=== PATIENT | female | born 1950 | race Caucasian/White ===

== ENCOUNTER 2016-08-19 04:23 | Inpatient (IN) | payer OTHER ==
[~2016-08-19] VITALS: Ht 162.6 cm; Wt 70.8 kg
[~2016-08-19 04:23] MED LIST: ALIGN4 M1; CLARITIN10 M1 PO; CLONAZEPAM0.5 M2 PO; COZAAR50 M1 PO; CRESTOR20 M2 PO; LAMICTAL XR100 M1 PO; OMEPRAZOLE40 M1 PO; TYLENOL EXTRA500 M2 PO
--- NOTE | 2016-08-19 14:09 | Admission Core Measures ---
Admission Meds I reviewed the following Meds: Current Medications Sig/Elijah Start time Last Medication Dose Stop Time Status Admin Acetaminophen 975 MG ONCE 08/19 0000 NR (Tylenol) 08/19 2358 Cefazolin Sodium 2,000 MG ONCE 08/19 0000 NR (Kefzol-Ancef Inj) 08/19 2358 Clonazepam 0.5 MG TIDPRN 08/19 1315 AC (KlonoPIN) 08/26 1314 Lactobacillus 1 CAP DAILY 08/20 1000 AC Acidophilus (Probiotic) Lamotrigine 300 MG BID 08/19 2200 AC (LaMICtal) Loratadine 10 MG DAILY 08/20 1000 AC (Claritin) Losartan Potassium 75 MG DAILY 08/20 1000 AC (Cozaar) Omeprazole 40 MG DAILY AC 08/20 0700 AC (Prilosec) Oxycodone HCl 10 MG ONCE 08/19 0000 NR (Roxicodone) 08/19 2358 Acute Coronary Syndrome Inclusion Criteria ACS Diagnosis No Inpatient Core Measures LDL Reminder: If No, please order W/I first 24hr of stay Congestive Heart Failure Inclusion Criteria CHF Diagnosis No Cerebrovascular accident Inclusion Criteria CVA/TIA Diagnosis No Inpatient Core Measures Bedside Swallow Eval Reminder: If BSE failed, place ST order Antithrombotic Reminder: Order Antithrombotic Medication by end of day 2 Antithrombotic Reminder: Document Reason Antithrombotic Not ordered by end of day 2 AFIB/Flutter Reminder: If Present, add to problem list AFIB/Flutter Reminder: Order Anticoag Medication for pts with AFIB/Flutter Atherosclerosis Reminder: If Present, add to problem list LDL Reminder: If No, please order W/I first 24hr of stay PT Order Reminder: If No, please order Venous thromboembolism Inpatient Core Measures VTE Risk Factors: Age > 40, Surgery No [facility] VTE prophylaxis d/t No contraindications No VTE Pharm Prophylaxis d/t No contraindications Inclusion Criteria - Per Current guidelines, there needs to be overlap - treatment for the first 5 days of Warfarin therapy. - Parenteral Anticoagulation (IV or SC) needs to be - given along with Warfarin therapy. VTE Diagnosis No VTE Type NONE VTE Confirmed by (Test) NONE Problem List As ranked by this Provider includes Assessment & Plan 1. Unilateral primary osteoarthritis, right hip HOME MEDS Home Med List Acetaminophen (Tylenol Extra Strength) 500 MG TABLET 2 TAB PO TID PAIN ( Reported) Clonazepam 0.5 MG TABLET 1 TAB PO TIDPRN SEIZURE DISORDER (Reported) Lamotrigine (Lamictal XR) 100 MG TAB.ER.24 6 TAB PO DAILY SEIZURE DISORDER ( Reported) Loratadine (Claritin) 10 MG TABLET 1 TAB PO DAILY ALLERGIES (Reported) Losartan Potassium (Cozaar) 50 MG TABLET 1.5 TAB PO DAILY HTN (Reported) Omeprazole 40 MG CAPSULE.DR 1 CAP PO DAILY HX GI BLEED (Reported) Rosuvastatin Calcium (Crestor) 20 MG TABLET 1 TAB PO 3X WEEK CHOLESTEROL ( Reported)
[2016-08-19] MEDS ORDERED: MIRALAX17 G1 PO (14:27)
[2016-08-19] MEDS ORDERED: DILAUDID2 M1 PO (14:27)
[2016-08-19] MEDS ORDERED: COLACE100 M1 PO (14:27)
[2016-08-19] MEDS ORDERED: ELIQUIS2.5 M1 PO (14:27)
--- NOTE | 2016-08-19 15:04 | Patient Discharge Instructions ---
Discharge Instructions General Discharge Information You were seen/treated for: Right hip pain related to unilateral primary osteoarthritis You had these procedures: right total hip replacement Watch for these problems: Increasing pain despite the use of pain medication. Increasing redness, warmth or swelling. Drainage of any type from incision. Inability to bear weight on operative leg. Persistent nausea and vomiting. Fever greater than 101.5 degrees. Do not soak the wound: Yes No bath, but you may shower: Yes Other wound care: Please keep wound clean and dry. No ointments or lotions of any type on or near incision at any time. No exceptions. Your dressing will be changed by your nurse on the second day after your surgery. Daily dry dressing changes are recommended each day thereafter. Do not soak your wound in a bath at any time until otherwise indicated by Dr. Schuler. You may shower, please dry wound immediately after shower with a clean towel. Special Instructions: Constipation: Pain medication can be very constipating. Dr. Schuler has recommended that you take Colace and miralax each day. You may discontinue this medication if you develop loose stool or diarrhea. If you wish to continue this medication, it is available over the counter. If you are unable to move your bowels after several days, if you are unable to pass gas and are developing bloating, nausea, or vomiting as a result, please contact your doctor. Diet Continue normal diet: Yes Recommended Diet: Regular Activity Full Activity/No Limits: No Activity Self Limited: Yes Pounds, do NOT lift more than: 10 Activity Limited to: Weight bear as tolerated Acute Coronary Syndrome Inclusion Criteria At [place] or during hospital stay patient has or had the following: ACS DIAGNOSIS No Discharge Core Measures Meds if any: Prescribed or Continued at Discharge Meds if any: NOT Prescribed or Continued at Discharge Congestive Heart Failure Inclusion Criteria At [place] or during hospital stay patient has or had the following: CHF DIAGNOSIS No Discharge Core Measures Meds if any: Prescribed or Continued at Discharge Meds if any: NOT Prescribed or Continued at Discharge Cerebrovascular accident Inclusion Criteria At [place] or during hospital stay patient has or had the following: CVA/TIA Diagnosis No Discharge Core Measures Meds if any: Prescribed or Continued at Discharge Meds if any: NOT Prescribed or Continued at Discharge Venous thromboembolism Inclusion Criteria VTE Diagnosis No VTE Type NONE VTE Confirmed by (Test) NONE Discharge Core Measures - Per Current guidelines, there needs to be overlap - treatment for the first 5 days of Warfarin therapy. - If discharged on Warfarin prior to 5 days of - overlap therapy, the patient will need to be - assessed for post discharge needs including - *Post discharge parental anticoagulation - *Warfarin and/or parental anticoagulation education - *Follow up date to check INR post discharge At least 5 days overlap therapy as Inpatient No Meds if any: Prescribed or Continued at Discharge Note: Overlap Therapy is Warfarin and Anticoagulant Meds if any: NOT Prescribed or Continued at Discharge
--- NOTE | 2016-08-19 15:08 | Surgical Discharge Summary ---
Visit Information Visit Dates Admission Date: 08/19/16 Discharge Date: 08/26/16 History of Present Illness Chief Complaint: Right hip pain related to unilateral primary osteoarthritis Medical History Isolation History: Standard Surgical History Pertinent Surgical History: non-contributory Review of Systems: See H&P Hospital Course Course Attending Physician: DIANE NIÑO MD Primary Care Physician: SANTIAGO MERCADO,[facility] Course: Patient was admitted to the hospital for an elective total joint replacement. The procedure was tolerated well and the patient was transferred to a general surgical floor. Diet was advanced and tolerated and the patient voided spontaneously. The patient was evaluated and treated by physical therapy. Although she was cleared for discharge to home by PT, the patient had anticipated going to a short term rehab facility and appealed the insurance denial, which prolonged her hospitalization. Complications: None Allergies: Coded Allergies: Fish Containing Products (Severe, HIVES 08/13/16) Iodinated Contrast- Oral and IV Dye (Severe, HIVES 08/18/16) cefaclor (From CECLOR) (Intermediate, RASH 08/13/16) NSAIDS (Non-Steroidal Anti-Inflamma (HX GI BLEED 08/13/16) Disposition Summary Disposition Principal Diagnosis: Right hip unilateral primary osteoarthritis Additional Diagnosis: same as above, s/p right total hip replacement (08/19/16) Discharge Disposition: home health services Discharge Instructions General Discharge Information Code Status: Full Code Patient's Diet: Regular, advance as tolerated Patient's Activity: WBAT Follow-Up Instructions/Appts: Follow up with Dr. Niño in 6 weeks from date of surgery. Please call his office to arrange and/or confirm this appointment. Medications at Discharge Discharge Medications: Stop taking the following medications: Acetaminophen (Tylenol Extra Strength) 500 MG TABLET ORAL THREE TIMES DAILY Continue taking these medications: Lamotrigine (Lamictal XR) 100 MG TAB.ER.24 6 Tablet ORAL DAILY Clonazepam (Clonazepam) 0.5 MG TABLET 1 Tablet ORAL THREE TIMES A DAY NEEDED Omeprazole (Omeprazole) 40 MG CAPSULE.DR 1 Capsule ORAL DAILY Bifidobacterium Infantis (Align) 4 MG (1 BILLION CELL) CAPSULE DAILY Losartan Potassium (Cozaar) 50 MG TABLET 1.5 Tablet ORAL DAILY Rosuvastatin Calcium (Crestor) 20 MG TABLET 1 Tablet ORAL 3X WEEK Loratadine (Claritin) 10 MG TABLET 1 Tablet ORAL DAILY Start taking the following new medications: Apixaban (Eliquis) 2.5 MG TABLET 1 Tablet ORAL TWICE DAILY Qty = 42 No Refills Docusate Sodium (Colace) 100 MG CAPSULE 1 Capsule ORAL TWICE DAILY Qty = 14 No Refills Instructions: DISCONTINUE USE IF YOU DEVELOP LOOSE STOOL OR DIARRHEA Polyethylene Glycol 3350 (Miralax) 17 GRAM POWD.PACK 1 Packet ORAL DAILY Qty = 7 No Refills Instructions: dissolve in water, DISCONTINUE USE IF YOU DEVELOP LOOSE STOOL OR DIARRHEA Hydromorphone HCl (Dilaudid) 2 MG TABLET 1-2 Tablet ORAL EVERY 4-6 HOURS as needed for PAIN Qty = 36 No Refills Copies To: CHRISTIAN HENDERSON MD
--- NOTE | 2016-08-19 15:16 | Operative Report ---
Operative/Inv Procedure Report Surgery Date: 08/19/16 Name of Procedure: Right Total hip replacement Pre-Operative Diagnosis: Primary right hip DJD Post-Operative Diagnosis: Same Estimated Blood Loss: 250 Surgeon/Medical Case Worker: RENAY MERCADO,DIANE Hernandez Anesthesia: block Operative/Procedure Note Note: Description of Procedure: The patient was taken to the operating room and positively identified. After induction of spinal anesthesia and administration of appropriate pre-operative antibiotics, the patient was positioned supine on the operating room table and all bony prominences were well padded. After performing a surgical timeout, the right lower extremity was prepped and draped in the usual sterile fashion. A direct anterior approach was made to the right hip. The incision was carried sharply through superficial soft tissues to the level of the fascia. Meticulous hemostasis was maintained with Bovie electocautery. The fascia over the tensor fascia shanda muscle was opened sharply and the interval between the TFL and the sartorius was entered bluntly taking care to stay lateral to the lateral femoral cutaneous nerve. Retractors were placed around the femoral neck and the pericapsular fat was identified. The ascending branches of the lateral femoral circumflex vessels were identified and carefully coagulated. The pericapsular fat and anterior capsule were then resected. A napkin ring osteotomy was performed and the femoral head was removed without difficulty. Attention was then turned to the acetabulum. After appropriate placement of retractors, the acetabulum was exposed. Soft tissue was cleaned from the acetabular margin and notch. Overhanging osteophytes were removed and the teardrop was exposed. The acetabulum was then sequentially reamed to accept a 56 mm Cony Tritanium hemispherical solid back shell. This was impacted into place in the appropriate position and fitted with a 36 mm Trident X3 zero degree polyethylene insert. Attention was then turned to the femur. After performing the appropriate ligament releases, the proximal femur was exposed. It was then sequentially broached to accept a size 7 [place] secure fit advanced 127 stem. This was trialed for leg length and stability. The trial component was removed and the final component was impacted into place. The trunnion was carefully cleaned and fit with a 36 mm, +2.5 Biolox delta ceramic femoral head. The hip was reduced and put through a full range of motion and found to be stable. The articular space was then irrigated with sterile saline. The periarticular soft tissues were infilitrated with Marcaine. The fascial layer was closed with interrupted #1 vicryl suture and the skin was re-approximated with interrupted 2 -0 vicryl. The skin was closed with a running 3-0 V-Lock suture. Steri-strips and a sterile dressing were applied. The patient was awakened and taken to the recovery room in satisfactory condition.
--- NOTE | 2016-08-19 15:27 | RADIOLOGY REPORT ---
EXAMINATION: XR HIP, RIGHT CLINICAL INFORMATION: Right hip arthroplasty. COMPARISON: None TECHNIQUE: Two views of the right hip. FINDINGS: Right total hip arthroplasty present, demonstrating usual position and alignment. No evidence of acute periprosthetic fractures. Postsurgical changes including soft tissue air is noted. Normal articulation of the arthroplasty components. IMPRESSION: Postsurgical changes, status post right total hip arthroplasty.
--- NOTE | 2016-08-19 16:03 | PN- Orthopedic ---
Subjective Subjective: POC denies pain, anesthesia still on board- numbness and inability to fully move legs. No n/v, tolerating sips water, no cp/sob. no oob yet Objective Vital Signs and I&Os AVSS Physical Exam: GEN: NAD CARD: s1s2 rrr PULM: CTAB ABD: soft nt nd EXT: R hip dressing cdi, ice in place, skin with some erythema under ice pack- chuckpad placed between skin and ice. Limited motor and sensate LE, geri to remaining anesthesia. + palp pt/dp Assessment/Plan Assessment/Plan A: POD0 sp R BO, stable with residual anesthesia affecting return of neurological fxn. P: prn pain meds prn nausea meds bowel regimen am labs eliquis 2.5 bid for dvt ppx oob, pt, wbat dc planning will reassess pt later to ensure return le neurological fxn. Core Measures/Miscellaneous Venous Thromboembolism VTE Risk Factors: Surgery VTE Contraindications: No Contraindications VTE Diagnosis: No VTE Type: NONE VTE Confirmed by (Test): NONE Beta Giovany Is Beta Giovany a Home Med? Yes If Yes, Was This Ordered Today? Yes Antibiotics Is Patient on Antibiotics? Yes If Yes: prophylaxis
[2016-08-19 19:16] VITALS: BP 154/80
[2016-08-19 20:46] VITALS: BP 150/68
[2016-08-19 22:30] VITALS: BP 148/80
[2016-08-20 02:00] VITALS: BP 142/76
[2016-08-20 06:00] VITALS: BP 122/70
--- NOTE | 2016-08-20 07:37 | PN- Orthopedic ---
Subjective Subjective: Patient without complaints, she has minimal pain, she has yet to be out of bed, she has voided. Objective Vital Signs and I&Os Vital Signs Date Time Temp Pulse Resp B/P B/P Pulse O2 O2 Flow FiO2 Mean Ox Delivery Rate 08/20 0600 98.2 84 20 122/70 94 Room Air 08/20 0200 98.1 63 18 142/76 95 Room Air 08/19 2302 81 150/68 08/19 2230 97.5 74 20 148/80 95 Room Air 08/19 2046 97.7 81 20 150/68 95 Room Air 08/19 1916 97.7 79 20 154/80 95 Room Air Intake & Output 08/20 0800 08/20 0000 08/19 1600 08/19 0800 08/19 0000 08/18 1600 Intake Total 700 500 Output Total 850 900 Balance -150 -400 Intake, IV 500 300 Intake, Oral 200 200 Number 0 Bowel Movements Output, Urine 850 900 Patient 156 lb Weight Weight Reported by Patient Measurement Method Physical Exam: Well-developed well-nourished no apparent distress. HEENT: Atraumatic, extraocular motion intact Neck: Supple, no lymphadenopathy Respiratory: No respiratory distress Extremities: No edema RIGHT lower extremity hip dressing in place, Mild thigh edema No signs of infection. No shortening or rotation Hip range of motion is limited and without unexpected pain Neurovascularly intact distally Bilateral calves are supple, nontender. Neuro: Alert and oriented x3 Psych: Mood affect normal, normal memory normal judgment. Skin: Warm and dry, no rash on exposed skin Results Last 48 Hours of Labs: Labs pending this morning Assessment/Plan Assessment/Plan Postoperative day #1 status post right total hip arthroplasty anterior approach Out of bed with physical therapy today, weightbearing as tolerated DVT prophylaxis with eliqius DC IV fluids Regular diet Following morning labs Patient requests her usual seizure medication, Lamictal ER, 600 mg 1 time this morning. We do not have the extended release tablets in our facility. Discussed with pharmacy, she has the medication with her, they will verify the medication and she will take it this morning. Plan for discharge to short-term rehabilitation [facility] today pending PT eval and labs Core Measures/Miscellaneous Venous Thromboembolism VTE Risk Factors: Surgery VTE Contraindications: No Contraindications VTE Diagnosis: No VTE Type: NONE VTE Confirmed by (Test): NONE Beta Giovany Is Beta Giovany a Home Med? Yes If Yes, Was This Ordered Today? Yes Antibiotics Is Patient on Antibiotics? Yes If Yes: prophylaxis
[2016-08-20 07:59] LABS: ABSOLUTE BASOPHIL COUNT 0 /CUMM (0.0-0.2); ABSOLUTE EOSINOPHIL COUNT 0 /CUMM (0.0-0.7); ABSOLUTE LYMPH COUNT 3.4 /CUMM (1.2-3.4); ABSOLUTE MONOCYTE COUNT 1.2 /CUMM (0.10-0.60); BASOPHIL % 0.4 % (0.0-2.0); EOSINOPHIL % 0 % (0-5); GRANULOCYTE % 63.2 % (42.2-75.2); HEMATOCRIT 34.2 % (37-47); MEAN CORPUSCULAR HGB 29.6 PG (27.0-31.0); MEAN CORPUSCULAR VOLUME 89.7 FL (81.0-99.0); MEAN PLATELET VOLUME 8.9 FL (7.4-10.4); PLATELET COUNT 313 /CUMM (130-400); RBC DISTRIBUTION WIDTH 15.6 % (11.5-14.5); RED BLOOD CELL CT 3.81 /CUMM (4.20-5.40); WHITE BLOOD CELL COUNT 12.6 /CUMM (4.8-10.8)
[2016-08-20 10:00] VITALS: BP 140/70
[2016-08-20 14:15] VITALS: BP 140/80
[2016-08-20 22:08] VITALS: BP 180/80
[2016-08-20 23:32] VITALS: BP 150/80
--- NOTE | 2016-08-21 05:23 | NUR ---
NSG NOTE: PT ORAL TEMP 102.2; SURGICAL ROGER DOTSON CALLED AND MADE AWARE. PO TYLENOL GIVEN PER ORDER. WILL RECHECK TEMP IN ONE HOUR.
[2016-08-21 06:09] VITALS: BP 148/76
--- NOTE | 2016-08-21 06:47 | NUR ---
NSG NOTE: PT ORAL TEMP RECHECKED AND NOW 101.4 ONE HOUR AFTER RECEIVING PO TYLENOL. WILL RECHECK IN ONE HOUR.
--- NOTE | 2016-08-21 07:33 | PN- Orthopedic ---
See Addendum Subjective Subjective: Patient with intermittent pain overnight, requiring 1 dose of morphine, also taking Dilaudid by mouth. Pain is mild to moderate at this time. She is noted to have a fever overnight of 102.2 maximum. She states that she felt "warm" but otherwise has no complaints. She is a long-time smoker, recently quit approximately 6 months ago. She denies cough or productive sputum, no shortness of breath. She denies any urinary symptoms of frequency urgency or burning. She has no abdominal pain nausea or vomiting. Objective Vital Signs and I&Os Vital Signs Date Time Temp Pulse Resp B/P B/P Pulse O2 O2 Flow FiO2 Mean Ox Delivery Rate 08/21 0626 101.4 08/21 06 101.4 08/21 0609 102.2 102 148/76 08/21 0522 102.2 08/20 2332 150/80 08/20 2208 98.8 100 18 180/80 91 08/20 2113 84 140/70 08/20 1415 97.9 79 20 140/80 97 Room Air 08/20 1331 Room Air Room Air 08/20 1329 Room Air Room Air 08/20 1052 Room Air Room Air 08/20 1000 97.7 74 18 140/70 96 Room Air Intake & Output 08/21 0800 08/21 0000 08/20 1600 08/20 0800 08/20 0000 08/19 1600 Intake Total 480 1030 600 700 500 Output Total 650 400 850 900 Balance -170 630 600 -150 -400 Intake, IV 30 500 300 Intake, Oral 480 1000 600 200 200 Number 0 0 Bowel Movements Output, Urine 650 400 850 900 Patient 156 lb Weight Weight Reported by Patient Measurement Method Physical Exam: Well-developed well-nourished no apparent distress. HEENT: Atraumatic, extraocular motion intact Neck: Supple, no lymphadenopathy Respiratory: No respiratory distress Extremities: No edema RIGHT lower extremity hip dressing in place, Dressing clean dry and intact with minimal bloody staining Incision without erythema Mild thigh edema No signs of infection. No shortening or rotation Hip range of motion is limited and without unexpected pain Neurovascularly intact distally Bilateral calves are supple, nontender. Neuro: Alert and oriented x3 Psych: Mood affect normal, normal memory normal judgment. Skin: Warm and dry, no rash on exposed skin Assessment/Plan Assessment/Plan Postoperative day #2 status post right total hip arthroplasty anterior approach Postoperative fever: Obtain CBC monitoring white blood cell count, chest x-ray for evaluation of pneumonia/atelectasis, urinalysis and urine culture. Monitor fever trend. Continue regular diet Physical therapy, out of bed Plan is to discharge to short-term rehabilitation hopefully tomorrow, patient hopeful to go to the [facility] for dvt prophylaxsis will dw attending. Core Measures/Miscellaneous Venous Thromboembolism VTE Risk Factors: Surgery VTE Contraindications: No Contraindications VTE Diagnosis: No VTE Type: NONE VTE Confirmed by (Test): NONE Beta Giovany Is Beta Giovany a Home Med? Yes If Yes, Was This Ordered Today? Yes Antibiotics Is Patient on Antibiotics? Yes If Yes: prophylaxis
[2016-08-21 08:48] LABS: ABSOLUTE BASOPHIL COUNT 0 /CUMM (0.0-0.2); ABSOLUTE EOSINOPHIL COUNT 0 /CUMM (0.0-0.7); ABSOLUTE GRANULOCYTE CT 6.4 /CUMM (1.4-6.5); ABSOLUTE LYMPH COUNT 3.6 /CUMM (1.2-3.4); ABSOLUTE MONOCYTE COUNT 1.1 /CUMM (0.10-0.60); BASOPHIL % 0.3 % (0.0-2.0); EOSINOPHIL % 0.1 % (0-5); GRANULOCYTE % 57.2 % (42.2-75.2); HEMATOCRIT 33.9 % (37-47); MEAN CORPUSCULAR HGB CONC 33.5 G/DL (33.0-37.0); MEAN CORPUSCULAR VOLUME 89.5 FL (81.0-99.0); MEAN PLATELET VOLUME 9.4 FL (7.4-10.4); RBC DISTRIBUTION WIDTH 15.3 % (11.5-14.5); RED BLOOD CELL CT 3.79 /CUMM (4.20-5.40); WHITE BLOOD CELL COUNT 11.1 /CUMM (4.8-10.8)
[2016-08-21 09:57] LABS: PLATELET COUNT 278 /CUMM (130-400)
--- NOTE | 2016-08-21 12:00 | NUR ---
PT LEFT FLOOR VIA STRETCHER TO XRAY.
--- NOTE | 2016-08-21 12:32 | NUR ---
PT ARRIVED TO FLOOR VIA STRETCHER. SETTLED IN RECLINER, CALL ALVAREZ WITHIN REACH
--- NOTE | 2016-08-21 13:07 | RADIOLOGY REPORT ---
EXAMINATION: XR CHEST CLINICAL INFORMATION: Postoperative fever. Evaluate for pneumonia. COMPARISON: None TECHNIQUE: 2 views of the chest were obtained. FINDINGS: The cardiomediastinal silhouette is within normal limits in size. Calcification of the aortic arch is seen. Lungs bilaterally are symmetrically hyperinflated with flattening of the hemidiaphragms and increase in retrosternal airspace, consistent with obstructive lung disease. Minimal linear subsegmental atelectasis or scarring is seen in the left lung base. No focal consolidation, effusion or pneumothorax is seen. No pulmonary edema is noted. Osteopenia is present with mild multilevel vertebral spurring in the mid and lower thoracic spine. IMPRESSION: 1. Obstructive lung disease. 2. Mild left basilar subsegmental atelectasis. 3. No focal pneumonia.
[2016-08-21 14:21] VITALS: BP 138/60
[2016-08-21 21:55] VITALS: BP 110/60
[2016-08-22 06:25] VITALS: BP 112/70
[2016-08-22 08:18] LABS: ABSOLUTE BASOPHIL COUNT 0.1 /CUMM (0.0-0.2); ABSOLUTE EOSINOPHIL COUNT 0 /CUMM (0.0-0.7); ABSOLUTE GRANULOCYTE CT 7.4 /CUMM (1.4-6.5); ABSOLUTE LYMPH COUNT 3.2 /CUMM (1.2-3.4); ABSOLUTE MONOCYTE COUNT 1.4 /CUMM (0.10-0.60); BASOPHIL % 0.5 % (0.0-2.0); EOSINOPHIL % 0.1 % (0-5); HEMATOCRIT 32.6 % (37-47); MEAN CORPUSCULAR HGB 29.7 PG (27.0-31.0); MEAN CORPUSCULAR HGB CONC 33.1 G/DL (33.0-37.0); MEAN CORPUSCULAR VOLUME 89.8 FL (81.0-99.0); MEAN PLATELET VOLUME 9.5 FL (7.4-10.4); PLATELET COUNT 259 /CUMM (130-400); RBC DISTRIBUTION WIDTH 15.2 % (11.5-14.5); RED BLOOD CELL CT 3.63 /CUMM (4.20-5.40); WHITE BLOOD CELL COUNT 12.1 /CUMM (4.8-10.8)
--- NOTE | 2016-08-22 09:33 | PN- Student ---
SADIA GARCIA 08/22/16 0900: Subjective Subjective: Patient is sitting up in bed, comfortable with no complaints at this time. Reports her right leg "feels like a log" and has some hip pain but it is well managed. She has been OOB and ambulating with PT twice yesterday without much difficulty. Denies chest pain, SOB, n/v, dizziness, headache. Has not had a bowel movement in two days but is refusing miralax and colace. Objective Objective: Vital Signs Result Date Time Pulse Ox 94 08/22 624 B/P 112/70 08/22 624 O2 Delivery Room Air 08/22 624 Temp 97.9 08/22 06 Pulse 81 08/22 06 Resp 19 08/22 624 O2 Flow Rate Room Air 08/20 1331 Intake & Output 08/22 0000 08/21 1600 08/21 0800 Intake Total 160 480 480 Output Total 400 650 Balance 160 80 -170 Intake, IV 10 Intake, Oral 150 480 480 Number 0 0 Bowel Movements Output, Urine 400 650 General: awake, alert, oriented, NAD Lungs: CTAB, no wheeze/rales/rhonchi Heart: S1 S2, RRR Abdomen: soft, normoactive bowel sounds, non-tender Extremities: warm, Dressing clean/dry/intact, minimal dillon-incisional erythema and tenderness on right hip, gross motor/sensory function intact, distal pulses 2+, no edema/calf tenderness bilaterally Assessment/Plan Assessment: This is a 66 y/o female POD # 3 Right total hip replacement anterior approach with PMH significant for seizures, pud, htn, hld, copd who had a fever of 102.2 max overnight from 08/20 to 08/21 that has since resolved, cxr on 08/21 showed mild atelectasis. There is no unexpected post-operative pain. No bowel movement in two days but refusing miralax and colace. Plan: Dressing changed this am Pain: PO dilaudid PRN Diet: regular diet PT: OOB and ambulate, WBAT, to be cleared by PT DVT ppx: DENNISE sims D/C today ?home/rehab Will discuss with attending ARMANI LAWLER 08/22/16 9914: Assessment/Plan Plan: agree with above PA-S note she is in the process of appealing the decision of the denial for short term rehab this will likely postpone her discharge until wednesday / wednesday will d/w
--- NOTE | 2016-08-22 12:09 | NUR ---
Physical therapy - Patient refused PT visit / just waking up and she wanted to eat her breakfast. Recommendation for patient to get into the chair for breakfast and patient refused. Will attempt 2nd visit later this morning.
[2016-08-22 14:07] VITALS: BP 110/80
[2016-08-22 21:44] VITALS: BP 122/58
[2016-08-23 06:42] VITALS: BP 120/54
--- NOTE | 2016-08-23 08:20 | PN- Orthopedic ---
Subjective Subjective: The patient was seen this morning postoperatively day #4. She complains that her leg still feels heavy reports that her pain is under adequate control of the current pain regiment. She has no complaints at the current time and is still actively appealing her discharge in attempts to be able to go to short-term rehabilitation. Objective Vital Signs and I&Os Vital Signs Date Time Temp Pulse Resp B/P B/P Pulse O2 O2 Flow FiO2 Mean Ox Delivery Rate 08/23 0642 99.3 73 20 120/54 94 Room Air 08/23 0000 93 Room Air 08/22 2144 98.3 79 20 122/58 93 Room Air 08/22 1407 98.1 97 20 110/80 93 Room Air Intake & Output 08/23 1600 08/23 0800 08/23 0000 08/22 1600 08/22 0800 08/22 0000 Intake Total 50 350 50 160 Output Total Balance 50 350 50 160 Intake, IV 0 0 10 Intake, Oral 50 350 50 150 Number 0 0 0 Bowel Movements Physical Exam: Gen.: Alert and in no obvious distress Skin: Warm and dry Extremities: Bilateral lower extremities are warm without calf tenderness or significant edema. Gross motor and sensory are intact. Right hip surgical dressing is clean, dry, and intact without signs of infection. Assessment/Plan Assessment/Plan Assessment: 66-year-old female status post right total hip arthroplasty postoperative day #4. The patient is progressing as expected and her pain is under adequate control. Plan: Out of bed with physical therapy Continue current pain regiment GI and DVT prophylaxis Daily dry dressing change Discharge home or to short-term rehabilitation once disposition is determined Core Measures/Miscellaneous Venous Thromboembolism VTE Risk Factors: Surgery VTE Contraindications: No Contraindications VTE Diagnosis: No VTE Type: NONE VTE Confirmed by (Test): NONE Beta Giovany Is Beta Giovany a Home Med? Yes If Yes, Was This Ordered Today? Yes Antibiotics Is Patient on Antibiotics? No
[2016-08-23 14:30] VITALS: BP 120/70
[2016-08-23 22:34] VITALS: BP 128/64
[2016-08-24 06:00] VITALS: BP 130/60
--- NOTE | 2016-08-24 07:42 | PN- Orthopedic ---
Subjective Subjective: Pt has no major complaints. She is awaiting appeal for STR. She states that she has epilepsy and lives alone. She ambulates with PT with a rolling walker, but feels limited to function independently. She is concerned about the risk of falls while on blood thinners. Otherwise tolerating solids and had a BM. Denies PORTILLO, dizziness, CP, SOB. Objective Vital Signs and I&Os Vital Signs Date Time Temp Pulse Resp B/P B/P Pulse O2 O2 Flow FiO2 Mean Ox Delivery Rate 08/24 06 97.6 80 20 130/60 97 Room Air 08/23 2234 98.4 83 20 128/64 97 Room Air 08/23 2112 84 128/64 08/23 1430 98.4 82 20 120/70 94 Room Air Intake & Output 08/24 0808/24 0000 08/23 1600 08/23 0800 08/23 0000 08/22 1600 Intake Total 480 480 50 350 Output Total Balance 480 480 50 350 Intake, IV 0 Intake, Oral 480 480 50 350 Number 0 0 Bowel Movements Physical Exam: Gen: Pt is awake and alert. NAD. Cardiac: Regular Pulm: CTA bilaterally Ext: R incision site is c/d/i with steris strips in place. Moderate proximal thigh swelling, within expected limits. No ecchymosis, erythema or drainage. LE sensation is intact. No distal calf edema or calf tenderness. Strength of DF/PF 5/5. Assessment/Plan Assessment/Plan Pt is a 66 yo F who is now POD #5 s/p anterior Right THR. She remains stable from a surgical standpoint and was cleared for DC to home, which has been held due to pt's decision to appeal STR insurance denial. Plan: -Continue PT for mobilization. -Eliquis for DVT ppx. Alps when in bed. -Pain control with po dilaudid prn. -Dry dressing change once daily. -Regular diet. -Continue home meds as ordered. -Await CM info regarding appeal decision. Core Measures/Miscellaneous Venous Thromboembolism VTE Risk Factors: Surgery VTE Contraindications: No Contraindications VTE Diagnosis: No VTE Type: NONE VTE Confirmed by (Test): NONE Beta Giovnay Is Beta Giovany a Home Med? No Antibiotics Is Patient on Antibiotics? No
[2016-08-24 14:20] VITALS: BP 130/60
[2016-08-24 22:18] VITALS: BP 120/60
[2016-08-25 06:26] VITALS: BP 120/62
--- NOTE | 2016-08-25 11:04 | NUR ---
NOTIFIED SURGICAL PA LAVINIA OF SURGICAL SITE NOTED WITH REDNESS TO SKIN POSSIBLE TAPE BLISTERS, NOT ON SURGICAL INCISION. STERI STRIPS INTACT. LAVINIA PA TO COME AND ASSESS INCISION. DRY STERILE DRESSING APPLIED FOR NOW. WILL CONTINUE TO MONITOR.
[2016-08-25 13:43] VITALS: BP 112/60
--- NOTE | 2016-08-25 15:48 | PN- Orthopedic ---
Subjective Subjective: POD#6 S/P RIGHT BO NO NEW ISSUES TODAY CONTINUES TO WORK WITH PT TOLERATING DIET VOIDING INDEPENDENTLY PAIN CONTROLLED WITH PO PAIN MEDS Objective Vital Signs and I&Os Vital Signs Date Time Temp Pulse Resp B/P B/P Pulse O2 O2 Flow FiO2 Mean Ox Delivery Rate 08/25 1343 98.2 82 18 112/60 95 Room Air 08/25 0626 98.8 83 20 120/62 91 Room Air 08/25 0000 92 Room Air 08/24 2218 98.3 72 18 120/60 92 08/24 2155 98.3 72 18 120/6 Intake & Output 08/25 1600 08/25 0800 08/25 0000 08/24 1600 08/24 0800 08/24 0000 Intake Total 600 100 480 480 480 480 Output Total Balance 600 100 480 480 480 480 Intake, IV 0 Intake, Oral 600 100 480 480 480 480 Number 0 Bowel Movements Patient 156 lb Weight Physical Exam: CV: RRR LUNGS: CLEAR ABD: SOFT, +BS EXT: MILD JOSE INCISIONAL SKIN IRRITAITON WHICH APPEARS TO BE RELATED TO TAPE NO CELLULITIS PRESENT THIGH SOFT NO HEMEATOMA PRESENT NO CALF TENDERNESS DISTAL CMS INTACT BILAT UE/LE Assessment/Plan Assessment/Plan ORTHO STABLE PLAN CONT CURRENT PLAN AWAITING APPEAL FORO REHAB PLACEMENT PER CM DRSY STERILE DRSG TO RIGHT HIP DAILY Core Measures/Miscellaneous Venous Thromboembolism VTE Risk Factors: Surgery VTE Contraindications: No Contraindications VTE Diagnosis: No VTE Type: NONE VTE Confirmed by (Test): NONE Beta Giovany Is Beta Giovany a Home Med? No Antibiotics Is Patient on Antibiotics? No
[2016-08-25 22:11] VITALS: BP 146/60
[2016-08-26 06:39] VITALS: BP 134/68
--- NOTE | 2016-08-26 11:47 | NUR ---
THIS RN CALLED TO ROOM BY PT TO NOTIFY THAT DSG GOT WET SO SHE TOOK IT OFF AND NOTICED BLISTERING AROUND INCISION SITE THAT WAS NOT THERE YESTERDAY. SAID SHE WAS TOLD YESTERDAY THAT REDNESS AT INCISION SITE WAS DUE TO REACTION FROM STERI STRIPS. THIS RN IS SEEING INCISION SITE FOR FIRST TIME TODAY AND HAS NOTHING TO COMPARE IT TO. BLISTERS NOTIED ON EDGES OF STERI STRIPS. PT DENIES HAVING REACTION TO ADHESIVE IN PAST. 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 SPOKE TO SURGICAL PA MAURI SMITH ABOUT SITUATION, SAID HE SAW IT THIS AM AND IT "LOOKED FINE" BUT WILL COME SEE PT WHEN OUT OF MEETING. PT DENIES THAT SURGICAL PA CAME TO EVAL THIS AM AND SAID NO MALE HAD LOOKED AT THE DRESSING TODAY. WILL CONTINUE TO MONITOR.
== END 2016-08-26 14:09 | disposition home health service (06) | DRG 470 ==
LOC: SDA 04:23 → 2NA 04:23 → ENRESERV 15:53 → ENTRNSPT 16:16 → 2NA 17:03 → CMPTRNSPT 17:11 → ENPENDDIS 08-26 08:42 → 2NA 08-26 14:09
PROVIDERS: Nurse Practitioner; Physician Assistant Surgical; ADMIT Orthopaedic Surgery
PROC: 0SR904A Replacement of Right Hip Joint with Ceramic on Polyethylene Synthetic Substitute, Uncemented, Open Approach (ICD-10-PCS; principal; 2016-08-19)
DX: M16.11 Unilateral primary osteoarthritis, right hip (principal); D69.3 Immune thrombocytopenic purpura; J44.9 Chronic obstructive pulmonary disease, unspecified; J95.89 Other postprocedural complications and disorders of respiratory system, not elsewhere classified; J98.11 Atelectasis; Z90.81 Acquired absence of spleen; M25.751 Osteophyte, right hip; G40.909 Epilepsy, unspecified, not intractable, without status epilepticus; K27.9 Peptic ulcer, site unspecified, unspecified as acute or chronic, without hemorrhage or perforation; I10 Essential (primary) hypertension; E78.5 Hyperlipidemia, unspecified; Z87.891 Personal history of nicotine dependence; R50.82 Postprocedural fever
CPT/HCPCS: 2NASP; 36415; 73502-RT; 81001; 82436; 87086; 97110-GO; 97116-GO; 97530-GO; C9399; J0131; J0690; J0735; J2405; J2550; J7042